=== PATIENT | male | born 1945 | race Caucasian/White ===

== ENCOUNTER → 2021-09-28 | Outpatient (CLI) | payer OTHER ==
[~2021-09-28] MED LIST: OXYACE5T PO
[2021-09-28 10:04] LABS: BASOPHILS ABSOLUTE AUTO 0.01 K/mm3 (0.00-0.23); BASOPHILS PERCENT AUTO 0 % (0-2); EOSINOPHILS PERCENT AUTO 0 % (0-6); Hematocrit 38.6 % (37.0-53.0); IMMATURE GRAN PERCENT AUTO 1 % (0-1); LYMPHOCYTES ABSOLUTE AUTO 0.25 K/mm3 (0.84-5.20); LYMPHOCYTES PERCENT AUTO 3 % (21-46); MONOCYTES ABSOLUTE AUTO 0.38 K/mm3 (0.16-1.47); MONOCYTES PERCENT AUTO 4 % (4-13); Mean Corpuscular HGB 29.5 pg (26.0-34.0); Mean Corpuscular HGB Conc 33.7 g/dL (31.5-36.5); Mean Corpuscular Volume 88 fL (80-100); Mean Platelet Volume 9.8 fL (9.1-12.4); NEUTROPHILS ABSOLUTE AUTO 8.01 K/mm3 (1.96-9.15); NEUTROPHILS PERCENT AUTO 92 % (41-73); Platelet Count 298 K/mm3 (150-400); RDW Coefficient Variation 14.6 % (11.7-14.2); RDW Standard Deviation 46.1 fL (35.1-46.3); White Blood Cell Count 8.75 K/mm3 (4.00-11.30)
== END | disposition home or self-care (01) ==
LOC: LAB SHORT 09:39
PROVIDERS: Registered Nurse Oncology
DX: C34.90 Malignant neoplasm of unspecified part of unspecified bronchus or lung (principal); D70.1 Agranulocytosis secondary to cancer chemotherapy; T45.1X5A Adverse effect of antineoplastic and immunosuppressive drugs, initial encounter
CPT/HCPCS: 85025

== ENCOUNTER → 2022-04-26 | Outpatient (CLI) | payer OTHER ==
[2022-04-26 10:07] LABS: BASOPHILS ABSOLUTE AUTO 0.07 K/mm3 (0.00-0.23); BASOPHILS PERCENT AUTO 2 % (0-2); EOSINOPHILS ABSOLUTE AUTO 0.53 K/mm3 (0.00-0.68); EOSINOPHILS PERCENT AUTO 13 % (0-6); Hematocrit 40.8 % (37.0-53.0); Hemoglobin 13.6 g/dL (13.5-17.5); IMMATURE GRAN ABSOLUTE AUTO 0.01 K/mm3 (0.00-0.10); IMMATURE GRAN PERCENT AUTO 0 % (0-1); LYMPHOCYTES ABSOLUTE AUTO 1.08 K/mm3 (0.84-5.20); LYMPHOCYTES PERCENT AUTO 26 % (21-46); MONOCYTES ABSOLUTE AUTO 0.42 K/mm3 (0.16-1.47); MONOCYTES PERCENT AUTO 10 % (4-13); Mean Corpuscular HGB 29.2 pg (26.0-34.0); Mean Corpuscular HGB Conc 33.3 g/dL (31.5-36.5); Mean Corpuscular Volume 88 fL (80-100); Mean Platelet Volume 9.5 fL (9.1-12.4); NEUTROPHILS PERCENT AUTO 49 % (41-73); Platelet Count 136 K/mm3 (150-400); RDW Coefficient Variation 17.1 % (11.7-14.2); RDW Standard Deviation 54.6 fL (35.1-46.3); Red Blood Cell Count 4.66 M/mm3 (4.30-5.90); White Blood Cell Count 4.11 K/mm3 (4.00-11.30)
[2022-04-26 10:41] LABS: Albumin, Blood 3.7 g/dL (3.4-5.0); Albumin/Globulin Ratio 1.3 (0.8-1.8); Bilirubin, Total 0.7 mg/dL (0.1-1.0); Bun/Creatinine Ratio 12.2 (12.0-20.0); Calcium, Blood 8.8 mg/dL (8.5-10.1); Creatinine, Blood 1.72 mg/dL (0.60-1.20); Globulin, Blood 2.9 g/dL (2.2-4.0); Potassium, Blood 4.2 mmol/L (3.5-5.5); Total Protein, Blood 6.6 g/dL (6.4-8.2)
== END | disposition home or self-care (01) ==
LOC: LAB SHORT 09:20 → LAB 09:20
PROVIDERS: Internal Medicine Hematology & Oncology
DX: C34.90 Malignant neoplasm of unspecified part of unspecified bronchus or lung (principal)
CPT/HCPCS: 80053; 85025

== ENCOUNTER 2023-04-05 09:09 | Inpatient (IN) | payer OTHER ==
[~2023-04-05] VITALS: Ht 177.8 cm; Wt 62.9 kg
[2023-04-05] VITALS (49 sets, daily range): BP systolic 67–106; BP diastolic 47–68
[~2023-04-05 09:09] MED LIST changes: +BISA10S PR; +ELIQUIS5 M2 PO; +FAMO20 PO; +GUAI200 PO; +LEVO T PO; +MELA3 PO; +PRED1 PO; +PRED20 PO; +SENNA LAXATIVE8.6 MG PO; +THERA-D2000 UNIT PO; +TRANSDERM-SCOP1 EA13 TD; +Tessalon200 MG; +Triamcinolone A15 G2 TOP
[2023-04-05 09:30] LABS: Calcium, Ionized (POC) 1.25 mmol/L (1.10-1.46); Chloride (POC) 103 mmol/L (98-108); Creatinine (POC) 1.5 mg/dL (0.8-1.3); Glucose (ISTAT POC) 167 mg/dL (70-99); Hemoglobin (POC) 9.5 g/dL (13.5-17.5); Potassium (POC) 4.3 mmol/L (3.5-5.5); Sodium (POC) 134 mmol/L (135-148); Total CO2 (POC) 22 mmol/L (21-32)
--- NOTE | 2023-04-05 12:00 | NUR ---
PT ARRIVED FROM LABEL DRIER AT 1100 PLACED ON CIGAR PACKER. ARRIVED WITH EPINEPHRINE AND LIDOCAINE IV INFUSING. SEE ICU-C FLOWSHEET FOR TITRATIONS. DOBUTAMINE ORDERED BUT NOT YET STARTED. OK TO ACCEPT MAP 50-[address] ZAYAS. RIGHT RADIAL ARM BAND IN PLACE WITH 7 ML AIR. PT HAS OCCLUDED ULNAR ARTERY (PRIOR TO ADMISSION), MONITORED SPO2 WAVEFORM CLOSELY ON RIGHT INDEX FINGER. PT DENIES PAIN BUT ADMITS TO A GENERAL FEELING OF BEING "UNWELL", CANNOT SPECIFY FURTHER. FAMILY AT BEDSIDE, AWAITING SEVERAL MORE FAMILY MEMBERS ARRIVAL. PT CONFIRMS HE DOES NOT WANT ANY HEROIC LIFE SUSTAINING TREATMENT SUCH INTUBATION. PALLIATIVE CARE CONSULT PLACED AND DNR ORDER WRITTEN. FAMILY IS IN AGREEANCE WITH PT'S WISHES. SON MIKAEL IS PRIMARY FAMILY CONTACT/DECISION MAKER IF PT UNABLE TO MAKE HIS WISHES KNOWN. RIGHT FEMORAL CENTRAL LINE IN PLACE. PIV X2 (RIGHT AND LEFT AC) BOTH FLUSH WELL. RN TO CONTINUE TO MONITOR.
--- NOTE | 2023-04-05 13:40 | NUR ---
Spiritual Care Visit. Pt. is resting so made connection with family who are present and welcome my visit. Facilitate a life review, and at one point Pt. wakes up. After pleasant introductions Pt. verbalizes that he was not interested in spiritual care. This museum exhibit technician will honor his request but will remain available to family if needed.
[2023-04-05 15:47] LABS: Creatine Kinase MB 231.5 ng/mL (0.0-3.6)
[2023-04-05 15:53] LABS: Creatine Kinase MB Index 18.8 (0.0-4.0)
--- NOTE | 2023-04-05 18:42 | NUR ---
SHIFT SUMMARY NEURO: PATIENT INTIALLY A&OX4 UPON ADMISSION TO ICU, HOWEVER AROUND 1800 PATIENT BEGAN TO HAVE INCREASING CONFUSION. ORIENTED ONLY TO PERSON, UNSURE TO PLACE, TIME, OR SITUATION. HE FREQUENTLY VOICED HOW TIRED HE WAS AND THAT HE JUST WANTED TO REST. CARDIAC: BP HAS BEEN SOFT SINCE ADMISSION TO ICU. JUNCTIONAL RHYTHM, HR IN 70'S. PATIENT HAS MARKING FOR BILATERAL PEDAL PULSES, HOWEVER UNABLE TO PALPATE. RESP: PATIENT IS ON 4LPM O2 VIA NASAL CANNULA AT 100% SPO2. VERY PRODUCTIVE COUGH THAT HE PREFERS TO ATTEMPT AND CLEAR ON HIS OWN, HOWEVER HE SWALLOWS MOST OF HIS SECRETIONS AND THEN SELF SUCTIONS. HE PREFERS SUCTION TO BE HIGH. RECEIVED NEBULIZER TX FROM RT. GI: PATIENT DECLINED LUNCH, STATING NO APPETITE. HAS ONLY HAD SIPS OF WATER SINCE ADMISSION. : UROSTOMY ON RIGHT SIDE. 250mL OF MALODOROUS URINE OUT, WITH NOTED SEDIMENTATION. SKIN: MEPILEX PLACED TO SACRUM PATIENT HAS VERY PROMINENT TAIL BONE. LINES: CENTRAL LINE TO R FEMORAL ARTERY, INFUSING LIDOCAINE @ 2MG/MIN AND EPI @ 3MCG/MIN. 18G TO RAC, 20G TO LAC. PSYCH: PATIENT HAS A LOT OF FAMILY COMING IN TO VISIT. HE KEEPS VOICING CONCERNS FOR HIS RUSS CHEIKH TERRIER, JAIRO, AND WHO IS CARING FOR HER. HIS SON AND DAUGHTER IN LAW HAVE CONFIRMED THAT FAMILY MEMBERS ARE TAKING TURNS CARING FOR HER. WILL CONTINUE TO MONITOR AND REPORT TO ONCOMING NURSE.
--- NOTE | 2023-04-05 18:46 | NUR ---
TR BAND DEFLATED 2-3 ML REMOVED EVERY 10 MIN UNTIL DEFLATED COMPLETELY. NO BLEEDING NOTED. SMALL HEMATOMA DISTAL TO TR BAND SITE NOTED ON ARRIVAL TO ICU. MARKED, HAS NOT EXTENDED. PT DENIES PAIN/DISCOMFORT. RN TO CONTINUE TO MONITOR
--- NOTE | 2023-04-05 18:47 | NUR ---
pt critically ill multiple visits. Pt expressed to staff want to with dignity. Pt wxpressing he wants to be comfortable. Discussion of code status and DNR initiated. pt had seen Dr Decker in his office and they had an extensive conversation at that time making him a DNR. Family notified of prognosis, continue with Iv medications multiple family in to visit. Pt high risk for sudden kps score 20%. Goal is to get him some loving and fulfilling time with his family. They are at bedside reminicing and expressing their love. Will continue to monitor.
--- NOTE | 2023-04-05 20:00 | NUR ---
ASSUMED CARE OF PT AT 1900. REPORT RECEIVED AT BEDSIDE. PT PRESENTS IN BED SLEEPING. NO S/S DISTRESS NOTED. WILL ALLOW PT TO REST. WILL REVIEW CHART AND PLAN OF CARE FOR THIS PT. LIDOCAINE AND EPI DRIPS CONTINUED UNCHANGED. BLOOD PRESSURES WITH MAP LOW 60'S.
--- NOTE | 2023-04-05 21:35 | NUR ---
DR ZAYAS HAS COME IN TO SEE PT. ORDERS RECEIVED. DISCUSSED PLAN TO WEAN LIDOCAINE AND EPI TO OFF ABLE. PT DOES AWAKEN EASILY AND ANSWER QUESTIONS WELL. NO OVERT SIGN OF CONFUSION. DOES MAKE USE OF YAUNKEUR SUCTION. TEACHING DONE ON SAFE SWALLOW CHIN TUCK WHICH PT HAS DEMONSTRATED WITHOUT CUES. O2 HAS BEEN WEANED TO OFF. MAINTAINS 94 PERCENT SATURATION ON ROOM AIR. EPI CURRENTLY TRIALIED LOWER AND NEEDED TO BE INCREASED BACK TO 2. SEE FLOWSHEET FOR RATE CHANGES. PT DENIES CHEST PAIN OR PRESSURE. DOPPLER PEDAL PULSES. DR ZAYAS AWARE.
[2023-04-06] VITALS (33 sets, daily range): BP systolic 76–136; BP diastolic 52–114
[2023-04-06] LABS: Creatine Kinase MB Index 19.1 (0.0-4.0)
[2023-04-06 03:48] LABS: Hematocrit 26.2 % (37.0-53.0); Hemoglobin 8.5 g/dL (13.5-17.5); Mean Corpuscular HGB 28.2 pg (26.0-34.0); Mean Corpuscular HGB Conc 32.4 g/dL (31.5-36.5); Mean Corpuscular Volume 87 fL (80-100); Mean Platelet Volume 9.5 fL (9.1-12.4); NRBC ABSOLUTE 0.03 K/mm3 (0.00-0.02); NRBC Auto 0.4 /100 WBC (0.0-0.2); Platelet Count 223 K/mm3 (150-400); RDW Standard Deviation 50.9 fL (35.1-46.3); Red Blood Cell Count 3.01 M/mm3 (4.30-5.90)
[2023-04-06 04:06] LABS: Alanine Aminotransfer (ALT/SGP 187 U/L (12-78); Albumin, Blood 2.3 g/dL (3.4-5.0); Albumin/Globulin Ratio 0.7 (0.8-1.8); Alk Phos 125 U/L (50-136); Anion Gap 10 mmol/L (6-16); Aspartate Aminotrans (AST/SGOT 365 U/L (12-37); Bilirubin, Total 0.4 mg/dL (0.1-1.0); Blood Urea Nitrogen 35 mg/dL (8-24); Bun/Creatinine Ratio 17.6 (12.0-20.0); CO2, Blood 21 mmol/L (21-32); Calcium, Blood 8.5 mg/dL (8.5-10.1); Chloride, Blood 101 mmol/L (98-108); Cholesterol 150 mg/dL (50-200); Creatinine, Blood 1.99 mg/dL (0.60-1.20); Globulin, Blood 3.1 g/dL (2.2-4.0); Glomerular Filtration Rate 34 (60-); Glucose, Blood 183 mg/dL (70-99); HDL Cholesterol 76 mg/dL (>39); LDL/HDL RATIO 0.7; Low Density Lipoprotein Chol 54 mg/dL (0-110); Magnesium, Blood 1.7 mg/dL (1.6-2.4); Phosphorus, Blood 4.9 mg/dL (2.5-4.9); Potassium, Blood 5.1 mmol/L (3.5-5.5); Sodium, Blood 132 mmol/L (136-145); Total Protein, Blood 5.4 g/dL (6.4-8.2); Triglycerides 99 mg/dL (30-160); Very Low Density Lipoprot Chol 19 mg/dL (6-32)
[2023-04-06 04:31] LABS: BAND PERCENT MAN 12 % (0-8); BASOPHILS PERCENT MAN 0 % (0-2); EOSINOPHILS PERCENT MAN 0 % (0-6); LYMPHOCYTES ABSOLUTE MAN 0.25 K/mm3 (0.84-5.20); LYMPHOCYTES PERCENT MAN 3 % (21-46); MONOCYTES ABSOLUTE MAN 0.75 K/mm3 (0.16-1.47); MONOCYTES PERCENT MAN 9 % (4-13); NEUTROPHILS ABSOLUTE MAN 7.39 K/mm3 (1.96-9.15); SEG NEUTROPHILS PERCENT MAN 76 % (41-73); TOTAL CELLS COUNTED 100
--- NOTE | 2023-04-06 07:00 | NUR ---
ASSUME CARE: I have assumed care of this patient.
[2023-04-06 07:31] LABS: Creatine Kinase MB 178.2 ng/mL (0.0-3.6)
[2023-04-06 07:51] LABS: Creatine Kinase MB Index 11.3 (0.0-4.0)
--- NOTE | 2023-04-06 10:45 | NUR ---
PROVIDER UPDATE: Message left for Dr Kennedy's call service regarding potential status change and central line removal.
--- NOTE | 2023-04-06 11:09 | NUR ---
SCD'S IN PLACE
--- NOTE | 2023-04-06 15:45 | NUR ---
PROVIDER UPDATE: RT noted concern for aspiration. Pt reports hx of GERD treated with daily PPI. See new orders
[2023-04-06 17:00] LABS: Creatine Kinase MB 129.4 ng/mL (0.0-3.6); Creatine Kinase MB Index 16.9 (0.0-4.0)
--- NOTE | 2023-04-06 17:46 | NUR ---
PROVIDER UPDATE: UPDATED PROVIDER, SEE NEW ORDERS.
--- NOTE | 2023-04-06 18:33 | NUR ---
SHIFT SUMMARY NEURO: PT IS ALERT AND ORIENTED X4. PT IS WEAK BUT ABLE TO MOVE ALL EXTREMITIES AND FOLLOWS COMMANDS. PERRLA. RESP: RONCHI HEARD ON LEFT SIDE WITH COURSE CRACKLES ON THE RIGHT. PT IS ON HOME DOSE OF 2L NC AND MAINTAINING A SATURATION FROM 98-100. CARDIO: PATIENT HAS BEEN IN A JUNCTIONAL RHYTHM WITH OCCASIONAL PVS'S. AFTER 12.5 DOSE OF METOPOLOL WAS ADMINISTERED THIS AFTERNOON, PT HAD ECTOPY AND BECAME HYPOTENSIVE AND HAS AN 8 BEAT RUN OF VTACH. MAG REPLACED. GI: BOWEL SOUNDS HEARD IN ALL QUADRANTS UPON AUSCULATION. NO BM TODAY. PT HAS HAD PERSISTANT COUGHING, PT SUCTIONING BILIOUS SUBSTANCE. PROVIDER IS AWARE. : PT HAS A UROSTOMY THAT IS PUTTING OUT URINE. SKIN: NO NEW SKIN BREAKDOWN LINES: 18G RAC, PATENT AND FLUSHING. MISC: PT WAS CHANGED TO A PURE DIET WITH NECTAR THICK LIQUIDS. FEMORAL CENTRAL LINE WAS PULLED AT 1600. NO BLEEDING, SITE LOOKS WNL.
--- NOTE | 2023-04-06 20:00 | NUR ---
ASSUMED CARE OF PT AT 1915. REPORT RECEIVED AT BEDSIDE. PT PRESENTS IN BED SLEEPING. DOES AWAKEN FOR BEDSIDE REPORT AND PARTICIPATES. PT HAS MOIST COUGH THAT HE IS ABLE TO CLEAR WITH EFFORT. USES YANKEUR SUCTION TO SELF CLEAR SECRETIONS. PT DENIES CHEST PAIN OR PRESSURE. RIGHT RADIAL SITE REMAINS STABLE WITHOUT HEMATOMA. ANXIOUS AFFECT NOTED. OXYGEN PER NASAL CANNULA ON AT 2 L/M. THIS IS SAME PT USES AT HOME. UROSTOMY EMPTIED FOR 150 ML URINE. WILL REVIEW CHART AND PLAN OF CARE FOR THIS PT.
--- NOTE | 2023-04-06 22:58 | NUR ---
CALL MADE TO DR NAJERA CONCERNING PT'S ANXIOUSNESS. ESPECIALLY WITH PERSISTANT COUGH. HAS ADMINISTERED 0.5 MG ATIVAN THE PREVIOUS NIGHT WITH SUCCESS. PT WAS ABLE REST SOME. DR NAJERA ORDERS LOW DOSE ATIVAN PRN. 0.5 MG IV ADMINISTERED WHICH HAS BEEN VERY AFFECTIVE. PT ABLE TO REST. HAS BEEN IN NORMAL SINUS RHYTHM WITH OCCASSIONAL PVC'S. BLOOD PRESSURES REMAIN WNL.
[2023-04-07] VITALS (36 sets, daily range): BP systolic 75–118; BP diastolic 48–88
[2023-04-07 03:14] LABS: BASOPHILS ABSOLUTE AUTO 0.01 K/mm3 (0.00-0.23); BASOPHILS PERCENT AUTO 0 % (0-2); EOSINOPHILS PERCENT AUTO 0 % (0-6); Hematocrit 23.6 % (37.0-53.0); Hemoglobin 7.7 g/dL (13.5-17.5); IMMATURE GRAN ABSOLUTE AUTO 0.04 K/mm3 (0.00-0.10); IMMATURE GRAN PERCENT AUTO 1 % (0-1); LYMPHOCYTES ABSOLUTE AUTO 0.17 K/mm3 (0.84-5.20); LYMPHOCYTES PERCENT AUTO 2 % (21-46); MONOCYTES ABSOLUTE AUTO 0.58 K/mm3 (0.16-1.47); MONOCYTES PERCENT AUTO 8 % (4-13); Mean Corpuscular HGB 28.5 pg (26.0-34.0); Mean Corpuscular HGB Conc 32.6 g/dL (31.5-36.5); Mean Corpuscular Volume 87 fL (80-100); Mean Platelet Volume 9.9 fL (9.1-12.4); NEUTROPHILS ABSOLUTE AUTO 6.36 K/mm3 (1.96-9.15); NEUTROPHILS PERCENT AUTO 89 % (41-73); NRBC ABSOLUTE 0.03 K/mm3 (0.00-0.02); NRBC Auto 0.4 /100 WBC (0.0-0.2); Platelet Count 189 K/mm3 (150-400); RDW Coefficient Variation 15.9 % (11.7-14.2); RDW Standard Deviation 49.6 fL (35.1-46.3); White Blood Cell Count 7.16 K/mm3 (4.00-11.30)
[2023-04-07 03:29] LABS: Bun/Creatinine Ratio 22.5 (12.0-20.0); Calcium, Blood 8.2 mg/dL (8.5-10.1); Creatinine, Blood 2.09 mg/dL (0.60-1.20); Magnesium, Blood 2.3 mg/dL (1.6-2.4); Potassium, Blood 4.5 mmol/L (3.5-5.5)
--- NOTE | 2023-04-07 03:31 | NUR ---
CALL MADE TO DR PARKER SECONDARY TO PT HAVE MORE FREQUENT RUNS OF V-TACH. NON-SUSTAINED. ORDERS FOR STAT MAG LEVEL TO BE DRAWN. THIS HAS BEEN DONE AND SENT TO LAB. PENDING RESULTS. PT ASYMPTOMATIC WITH THESE EPISODES. PT HAS BEEN ABLE TO REST SOME. TOLERATES Q 2 HOUR TURNS IN BED. MAINTAINS > 65 MAP PER BLOOD PRESSURES. 2 LITERS NASAL CANNULA 02 KEEPS SATURATIONS > 90 PERCENT. PT HAS OCCASSIONAL MOIST COUGH. WILL CONTINUE TO MONITOR PT, AND WILL WATCH FOR LAB RESULTS.
--- NOTE | 2023-04-07 03:44 | NUR ---
DR PARKER AWARE OF LAB RESULTS. MAG LEVEL WNL. AGAIN, PT ASYMPTOMATIC WITH SHORT RUNS OF V-TACH.
--- NOTE | 2023-04-07 06:08 | NUR ---
PT HAS HAD DECREASE IN FREQUENCY OF SHORT RUNS V-TACH. EKG OBTAINED THIS AM. PT HAS RESTED MORESO THIS NIGHT. HAS TOLERATED Q 2 HOUR TURNS IN BED. HAS HAD ADEQUATE OUTPUT FROM UROSTOMY. UNDERLYING CARDIAC RHYTHM IS SINUS RHYTHM WITH PVC'S. WITH EKG REVEALS MUCH DECREASED ST ELEVATIONS IN II, III, AND AVF LEAD. PT HAS DENIED CHEST PAIN OR PRESSURE. CONTINUES WITH OXYGEN ON AT 2 L/M PER NASAL CANNULA. WILL CONTINUE TO MONITOR PT, AND WILL REPORT OFF TO ONCOMING RN.
--- NOTE | 2023-04-07 07:00 | NUR ---
ASSUME CARE: I have assumed care of this patient.
--- NOTE | 2023-04-07 09:42 | NUR ---
PROVIDER UPDATE: Dr Kennedy called and notified of rhythm changes. Pt had long run of vtach and afib in 180s. He is now back to junctional rhythm 80-90s. No new orders. Provider to come see pt.
[2023-04-07 10:24] LABS: Hematocrit 24.1 % (37.0-53.0); Hemoglobin 7.9 g/dL (13.5-17.5)
--- NOTE | 2023-04-07 10:24 | NUR ---
PROVIDER UPDATE: Dr Kennedy notifed of continued episodes of vtach. see new orders.
--- NOTE | 2023-04-07 11:02 | NUR ---
PROVIDER UPDATE: Dr Coon called and updated on pt status.
[2023-04-07 11:31] LABS: Creatine Kinase MB Index 15.5 (0.0-4.0)
--- NOTE | 2023-04-07 13:48 | NUR ---
PHONE CALL: Son and [id number] updated on pt status.
--- NOTE | 2023-04-07 14:30 | NUR ---
FAMILY UPDATE: Pt's son and [id number] called and notified that pt has chosen comfort care. Family en route
--- NOTE | 2023-04-07 18:10 | NUR ---
END OF SHIFT SUMMARY: THIS AM PT WAS CONVERTING INTO SEVERAL DIFFERENT RHYTHMS WITH LONG PAUSES IN BETWEEN AND THEN BEGAN TO HAVE SEVERAL RUNS OF VTACH. GROCERY CLERK SELLING CAME TO BEDSIDE TO EVALUATE PT WHEN PT EXPRESSED THAT HE WANTED COMFORT MEASURES. COMFORT MEASURES WERE STARTED. FAMILY WAS NOTIFIED AND IN ROUTE. FAMILY AT BEDSIDE VISITING.
== END 2023-04-08 01:35 | DRG 247 ==
LOC: ER 09:09 → ICUE 09:40 → ICUW 09:41 → ICUE 11:02 → MEDS 04-07 19:00
PROVIDERS: Family Medicine Adult Medicine; Internal Medicine; Internal Medicine Critical Care Medicine; Student in an Organized Health Care Education/Training Program; ADMIT Internal Medicine Cardiovascular Disease
PROC: 027034Z Dilation of Coronary Artery, One Artery with Drug-eluting Intraluminal Device, Percutaneous Approach (ICD-10-PCS; principal; 2023-04-05)
PROC: 4A023N7 Measurement of Cardiac Sampling and Pressure, Left Heart, Percutaneous Approach (ICD-10-PCS; 2023-04-05)
PROC: B2111ZZ Fluoroscopy of Multiple Coronary Arteries using Low Osmolar Contrast (ICD-10-PCS; 2023-04-05)
PROC: B240ZZ3 Ultrasonography of Single Coronary Artery, Intravascular (ICD-10-PCS; 2023-04-05)
PROC: 02HV33Z Insertion of Infusion Device into Superior Vena Cava, Percutaneous Approach (ICD-10-PCS; 2023-04-05)
PROC: 30233N1 Transfusion of Nonautologous Red Blood Cells into Peripheral Vein, Percutaneous Approach (ICD-10-PCS; 2023-04-05)
DX: I21.19 ST elevation (STEMI) myocardial infarction involving other coronary artery of inferior wall (principal); C79.31 Secondary malignant neoplasm of brain; I50.20 Unspecified systolic (congestive) heart failure; I13.0 Hypertensive heart and chronic kidney disease with heart failure and stage 1 through stage 4 chronic kidney disease, or unspecified chronic kidney disease; C34.32 Malignant neoplasm of lower lobe, left bronchus or lung; C34.12 Malignant neoplasm of upper lobe, left bronchus or lung; N17.9 Acute kidney failure, unspecified; J96.11 Chronic respiratory failure with hypoxia; I47.29 Other ventricular tachycardia; Z66 Do not resuscitate; Z51.5 Encounter for palliative care; R57.0 Cardiogenic shock; E78.5 Hyperlipidemia, unspecified; F17.210 Nicotine dependence, cigarettes, uncomplicated; I73.9 Peripheral vascular disease, unspecified; E03.9 Hypothyroidism, unspecified; K21.9 Gastro-esophageal reflux disease without esophagitis; J43.9 Emphysema, unspecified; I25.10 Atherosclerotic heart disease of native coronary artery without angina pectoris; I48.0 Paroxysmal atrial fibrillation; I50.810 Right heart failure, unspecified; N18.30 Chronic kidney disease, stage 3 unspecified; C44.90 Unspecified malignant neoplasm of skin, unspecified; Z90.6 Acquired absence of other parts of urinary tract; Z88.0 Allergy status to penicillin; Z88.5 Allergy status to narcotic agent; Z79.01 Long term (current) use of anticoagulants; Z79.52 Long term (current) use of systemic steroids; Z99.81 Dependence on supplemental oxygen; Z98.890 Other specified postprocedural states; Z85.51 Personal history of malignant neoplasm of bladder; Z85.46 Personal history of malignant neoplasm of prostate; Z85.118 Personal history of other malignant neoplasm of bronchus and lung; Z95.820 Peripheral vascular angioplasty status with implants and grafts; Z85.858 Personal history of malignant neoplasm of other endocrine glands; Z92.3 Personal history of irradiation; Z79.899 Other long term (current) drug therapy
CPT/HCPCS: 36415; 36430; 36556; 71045; 76937; 80047; 80048; 80053; 80061; 82550; 82553; 83036; 83735; 84100; 85014; 85018; 85025; 85347; 86850; 86900; 86901; 86923; 92610; 93005; 93010; 93306; 93454; 94640; 94664; 94760; 94762; 99152; 99153; 99285-25; A9270; C1725; C1769; C1874; C1887; C1894; C9113; C9606; J0171; J0461; J1160; J1644; J1720; J2001; J2060; J2250; J2270; J2370; J2405; J3010; J3475; J7030; J7050; J7060; P9016; Q9967